=== PATIENT | female | born 1935 | race Caucasian/White ===

== ENCOUNTER → 2021-02-05 | Outpatient (CLI) | payer MEDICARE ==
--- NOTE | 2021-02-06 09:08 | NM ---
EXAMINATION TYPE: NM DatScan Brain SPECT DATE OF EXAM: 02/05/2021 COMPARISON: NONE HISTORY: G 25.0, tremor TECHNIQUE: 10 drops of Lugol's solution was administered 1 hour prior to injection as a thyroid bloc liz agent. After the administration of 4.4 mCi I-123 Ioflupane DaTscan. Images obtained [address] injection[address] SPECT images of the brain were acquired with axial and coronal reconstructions. FINDINGS: The patient is canted within the gantry. Symmetric uptake is noted along the striata. Comma-shaped up take is present bilaterally. IMPRESSION: Normal RUDOLPH scan.
== END | disposition home or self-care (01) ==
LOC: RADNMMAIN 10:40
PROVIDERS: ATTEND Psychiatry & Neurology Neurology
DX: G25.0 Essential tremor (principal)
CPT/HCPCS: 78803; A9584

== ENCOUNTER → 2021-04-07 | Outpatient (CLI) | payer MEDICARE ==
--- NOTE | 2021-04-07 19:30 | CONS ---
CONSULTATION REASON FOR CONSULTATION: Nocturnal hallucinations. This is a very pleasant 85-year-old female patient coming today to the sleep center accompanied by her niece. The patient was referred to me by her neurologist. In fact, she was there for symptoms of vertigo and some gait dysfunction and tremors. She underwent further investigation through Neurology and the patient was told that her symptoms were not consistent with Parkinson's disease. No seizure activity has been noted. No other obvious causes for her tremors and dizziness and imbalance. Another issue was some increased hypersomnia and sleepiness and some episodes of hallucinations that were quite concerning for the family. For that reason, the patient was referred to me. The patient reported some visual hallucinations or imagery consistent with her falling off a julia or at a height and she would wake up and visualize objects misplaced in her room. This has occurred on several occasions and the frequency of these episodes has been gradually dissipating. Note that this has not been a any form of muscle paralysis, and the patient was able to move her body. Nevertheless, she would stay in her recliner where she would sleep until these hallucinations go away, and the patient would ultimately reason with herself that these are images rather than real findings. No reported nightmares. No reported snoring. The patient has severe kyphoscoliosis and she has been sleeping in a recliner for several years. No history of any psychiatric disorder such as schizophrenia. No history of any dementia or Lewy body disease. The patient has good memory and her cognitive functions have been essentially well preserved. No other new medication changes. At one point the patient was given Seroquel, which caused her tiredness and sleepiness to be worse, and ultimately she ended up quitting this medication. No other psychotropic medications that she takes for now. No alcoholism. No substance abuse. No bodily harm or falls related to these episodic hallucinations. No reported history of cataplexy in this patient. No personal family history of narcolepsy. PAST MEDICAL HISTORY: Past medical history includes history of chronic kidney disease, chronic diastolic heart failure, hypothyroidism, history of sick sinus syndrome. The patient has a pacemaker in place. Iron-deficiency anemia, hypertension, history of in-hospital delirium/delusions, osteoarthritis, paroxysmal atrial fibrillation, chronic venous insufficiency. PAST SURGICAL HISTORY: Past surgical history includes pacemaker insertion. DRUG ALLERGIES: NOT KNOWN. OUTPATIENT MEDICATION: Outpatient medication includes Eliquis 2.5 mg twice a day, Lasix 20 mg p.o. daily, metoprolol 25 mg half a tablet twice a day, midodrine 1 tablet twice a day, Aldactone 12.5 mg one tablet a day, Nystatin powder and metro powder. SOCIAL HISTORY: Nonsmoker. No history of alcoholism. No history of IV drugs. FAMILY HISTORY: Negative for any sleep breathing disorder. REVIEW OF SYSTEMS: Fourteen-point review of systems was done, and the positive findings are all mentioned above in the history of present illness. The patient takes naps during the day. No recent weight gain. She has kyphoscoliosis of the thoracolumbar spine. No head trauma. No falls. No restlessness in the lower extremities. No nightmares. No grinding of the teeth. No sleepwalking or sleeptalking. No anxiety or panic attacks. No other history of psychiatric disorders. PHYSICAL EXAMINATION: HER CURRENT VITALS: Blood pressure is 134/77, pulse 50, respirations 12, temperature 96.9, saturation 96% on room air. Height is 5 feet 0 inches. Weight is 144, BMI 28.2. [place] score is 13. Neck size is 16-1/2 inches. GENERAL APPEARANCE: Calm, comfortable. HEAD: Atraumatic, normocephalic. NECK: Supple. No JVD. No goiter or neck masses. Mallampati class 2 to 3. LUNGS: Diminished. Otherwise clear. Thoracic kyphoscoliosis. HEART: Heart sounds are regular rate and rhythm. Normal S1, S2. No S3, S4. No murmurs. ABDOMEN: Soft, nontender. No organomegaly. EXTREMITIES: No edema. No cyanosis or clubbing. IMPRESSION: 1. Arousal hallucinations, probably hypnagogic hallucinations as described by the patient. This patient is commonly seeing moving patterns and shapes and vivid images. No accompanying hallucinations. She is having the physical sensation that she is falling and she is weightless. Her presentation is typical of hypnagogic hallucinations. I doubt her symptoms are related to any form of psychiatric disorder such as schizophrenia. The patient is able to distinguish the characteristics of hallucinations and ultimately recognized that the hallucinations are not real. No previous history of mental health. No history of substance abuse. No history of any head trauma. Neuro workup has been essentially negative. No associated sleep paralysis or cataplexy. No other comorbidities. 2. Thoracic kyphoscoliosis. 3. Chronic kidney disease. 4. Hypothyroidism. 5. Chronic diastolic heart failure. 6. History of sick sinus syndrome with pacemaker insertion. 7. Paroxysmal atrial fibrillation. 8. Osteoarthritis. 9. Chronic venous insufficiency. PLAN: The patient has hypnagogic hallucinations that are not associated with any other major comorbidities in her case. No issues with mental health. No issues with any other chronic medical disorders. Sleep apnea is doubtful at this stage. These are considered to be harmless and do not necessarily indicate any form of underlying chronic disorder. I reassured the patient. I do not see the need for a screening polysomnogram at this point in time. Treat comorbidities. Sleep education was given. Avoid alcohol drinking. Avoid any drugs that can disturb sleep architecture in general. Get enough sleep. Maintain a regular sleep cycle. See me back if there is any worsening in her symptoms. MMODL / IJN: [id number] /
== END | disposition home or self-care (01) ==
LOC: SLEEP 15:00
PROVIDERS: ATTEND Internal Medicine Critical Care Medicine
DX: R44.2 Other hallucinations (principal); M41.84 Other forms of scoliosis, thoracic region; N18.9 Chronic kidney disease, unspecified; E03.9 Hypothyroidism, unspecified; I50.32 Chronic diastolic (congestive) heart failure; I48.91 Unspecified atrial fibrillation; M19.90 Unspecified osteoarthritis, unspecified site; I87.2 Venous insufficiency (chronic) (peripheral)
CPT/HCPCS: 99211